=== PATIENT | female | born 1975 | race Caucasian/White ===

== ENCOUNTER 2020-04-22 14:28 | Emergency (ER) | payer MEDICARE, MEDICAID, SELFPAY ==
[2020-04-22 14:41] VITALS: BP 87/50; PULSE 75; RESP 20; TEMP 37.5; O2SAT 98
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
== END 2020-04-22 15:08 | disposition home or self-care (01) ==
PROVIDERS: Emergency Provider Nurse Practitioner Family; PCP Family Medicine
DX: J02.9 Acute pharyngitis, unspecified (principal); G82.20 Paraplegia, unspecified; T14.8XXS Other injury of unspecified body region, sequela
CPT/HCPCS: 87081; 87880; 99203; G0463

== ENCOUNTER 2022-03-28 13:13 | Emergency (ER) | payer MEDICARE, MEDICAID, SELFPAY ==
[2022-03-28 13:22] VITALS: BP 82/58; PULSE 65; RESP 16; TEMP 36.4; O2SAT 98
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
[2022-03-28 13:54] VITALS: BP 82/58; PULSE 65; RESP 16; TEMP 36.4; O2SAT 98
== END 2022-03-28 14:15 | disposition home or self-care (01) ==
PROVIDERS: Emergency Provider Registered Nurse; PCP Family Medicine
DX: J06.9 Acute upper respiratory infection, unspecified (principal); J02.9 Acute pharyngitis, unspecified; Z20.822 Contact with and (suspected) exposure to COVID-19; Z87.891 Personal history of nicotine dependence; G83.89 Other specified paralytic syndromes
CPT/HCPCS: 87426; 99213; C9803; G0463

== ENCOUNTER 2022-10-20 12:32 | Emergency (ER) | payer MEDICARE, MEDICAID, SELFPAY ==
[2022-10-20 12:46] VITALS: BP 108/79; PULSE 77; RESP 20; TEMP 36.5; O2SAT 100
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
== END 2022-10-20 13:44 | disposition home or self-care (01) ==
PROVIDERS: Emergency Provider Nurse Practitioner Family
DX: R30.0 Dysuria (principal); Z87.891 Personal history of nicotine dependence
CPT/HCPCS: 81003; 87077; 87086; 87186; 99213; G0463

== ENCOUNTER 2023-05-12 13:10 | Emergency (ER) | payer MEDICARE, MEDICAID, SELFPAY ==
[2023-05-12 13:24] VITALS: BP 100/57; PULSE 77; RESP 16; TEMP 36.6; O2SAT 100
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
== END 2023-05-12 14:00 | disposition home or self-care (01) ==
PROVIDERS: Emergency Provider Nurse Practitioner; PCP Family Medicine
DX: R30.0 Dysuria (principal); Z87.891 Personal history of nicotine dependence; G83.9 Paralytic syndrome, unspecified
CPT/HCPCS: 81003; 87077; 87086; 87088; 87186; 99213; G0463

== ENCOUNTER 2023-11-15 13:19 | Emergency (ER) | payer MEDICARE, MEDICAID, SELFPAY ==
[2023-11-15 13:26] VITALS: BP 103/67; PULSE 73; RESP 16; TEMP 36.3; O2SAT 98
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
--- NOTE | 2023-11-17 14:46 | PC.NURSE ---
called and requested results of strep cx and was given.
== END 2023-11-15 14:02 | disposition home or self-care (01) ==
PROVIDERS: Emergency Provider Registered Nurse; PCP Family Medicine
DX: J02.9 Acute pharyngitis, unspecified (principal); Z20.818 Contact with and (suspected) exposure to other bacterial communicable diseases; Z87.891 Personal history of nicotine dependence; S14.105S Unspecified injury at C5 level of cervical spinal cord, sequela; X58.XXXS Exposure to other specified factors, sequela
CPT/HCPCS: 87081; 87880; 99213; G0463

== ENCOUNTER 2023-12-25 14:29 | Emergency (ER) | payer MEDICARE, MEDICAID, SELFPAY ==
[2023-12-25 14:38] VITALS: BP 85/59; PULSE 88; RESP 20; TEMP 36.6; O2SAT 98
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
== END 2023-12-25 15:40 | disposition home or self-care (01) ==
PROVIDERS: Emergency Provider Nurse Practitioner Family; PCP Family Medicine
DX: J06.9 Acute upper respiratory infection, unspecified (principal); Z87.891 Personal history of nicotine dependence; Z20.822 Contact with and (suspected) exposure to COVID-19
CPT/HCPCS: 87081; 87426; 87804; 87880; 99213; G0463

== ENCOUNTER 2024-04-14 10:07 | Emergency (ER) | payer MEDICARE, MEDICAID, SELFPAY ==
[2024-04-14 10:14] VITALS: BP 93/54; PULSE 95; RESP 20; TEMP 37.5; O2SAT 97
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
[2024-04-14 10:46] LABS: EDUAAPPEAR Cloudy; EDUABILI Negative; EDUABLOOD Trace; EDUACOLOR1 Yellow; EDUAGLUCOSE Negative; EDUAKETONE Negative; EDUALEUKO 1+; EDUANITRATE Positive; EDUAPROTEIN Negative; EDUAUROBILI 0.2
== END 2024-04-14 10:51 | disposition home or self-care (01) ==
PROVIDERS: Emergency Provider Nurse Practitioner Family; PCP Family Medicine
DX: N39.0 Urinary tract infection, site not specified (principal); Z87.891 Personal history of nicotine dependence; G82.20 Paraplegia, unspecified
CPT/HCPCS: 81003; 87077; 87086; 87088; 87186; 99213; G0463

== ENCOUNTER 2024-11-26 12:41 | Emergency (ER) | payer MEDICARE, MEDICAID, SELFPAY ==
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
[2024-11-26 13:11] LABS: EDUAAPPEAR Cloudy; EDUABILI Negative (Negative); EDUABLOOD Negative (Negative); EDUACOLOR1 Light/Pale; EDUAGLUCOSE Negative (Negative); EDUAKETONE Negative (Negative); EDUALEUKO 1+ (Negative); EDUANITRATE Negative (Negative); EDUAPROTEIN Negative (Negative); EDUAUROBILI 0.2
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
--- OUTSIDE RECORDS SUMMARY | 2024-11-26 13:44 | XMS_ITS ---
Care Plan - [facility] Created on: November 26, 2024 SEVEN SINGER : 1975 Sex: Female Author Organization [facility] Address [address] [place] [address] Phone Care Team Providers Care It Senior Analyst Name Role Phone Unavailable Unavailable Unavailable
--- OUTSIDE RECORDS SUMMARY | 2024-11-26 13:45 | XMS_ITS | Data Portability ---
Author Organization [facility] [place] Address [address] [facility] [place] [address] Care Team Providers Care Supply Chain Assistant Name Role Phone REYESCHESTERAN Primary Care Provider [phone] Assessment Encounter Date Assessment Date Assessment LastModified by Organization Details LastModified Time 02/22/2022 02/22/2022 Pt will stop methenamine for several days to see if the hives resolve. Pt is to let us know later this week or earlier next week how she is doing. [email or web address] Not available 02/23/2022 14:25:31 06/12/2024 06/12/2024 Pt is stable, accompanied by sister who works for her as caregiver. [email or web address] Not available 06/15/2024 08:46:07 Plan of Treatment Reminders Order Date Submit Date Provider Last Modified By Organization Details Last Modified Time Details Appointments None recorded. Lab HbA1c (hemoglob in A1c), blood 2023 [facility], [address] [place], [address], 4 09:14:30 lipid panel, serum 2023 024 [facility], [address] [place], [address], 4 09:14:24 TSH, ultra-sen sitive, serum 2023 024 [facility], [address] [place], [address], 4 09:14:31 CBC w/ auto diff 2023 024 JOSIANE Santino [facility], [address] [facility] [place], [address], 4 09:14:33 CMP, serum or plasma 2023 024 JOSIANE Santino [facility], [address] [facility] [place], [address], 4 09:14:25 iron + total iron-bind ing capacity (TIBC), serum 2023 024 COMFORT Santino [facility], [address] [facility] [place], [address], 4 09:14:29 vaginal pathogens panel, ALIE+probe , vaginal fluid 2023 024 [facility], [address] [facility], [place], [address], 4 16:08:09 pap, IG + HPV, cervical 2023 024 J[facility]IANE [facility], [address] [facility], [facility], [place], [address], 4 16:13:45 O&P (ova & parasites ), stool 2023 024 JOSIANE [facility], [address] [facility], [facility], [place], [address], 4 06:18:02 gastroint estinal pathogens panel, culture, stool 2023 024 J[facility]IANE [facility], [address] [facility], [facility], [place], [address], 4 13:10:46 HbA1c (hemoglob in A1c), blood 2021 022 JOSIANE In-Office Order, Internal Use Only DO Not Attach Compendium DO Not Attach Compendium, Do Not Delete/merge, [id number] 17:01:23 CMP, serum or plasma 2021 [facility], [address] [facility], [facility], [place], [address], 09:13:24 lipid panel, serum 2021 [facility], [address] [facility], [facility], [place], [address], 09:13:25 CBC w/ auto diff 2021 [facility], [address] [facility], [facility], [place], [address], 09:13:22 TSH, ultra-sen sitive, serum 2021 [facility], [address] [facility], [facility], [place], [address], 09:13:27 vitamin D, 25-hydrox y, total, serum 2021 [facility], [address] [facility], [facility], [place], [address], 09:13:26 Referral gynecolog ist referral 2023 024 [facility], [address] [place], [address], 14:50:00 Procedures None recorded. Surgeries None recorded. Imaging MAMMO, screening , digital, bilateral - Patient needs to be scheduled at [facility] due to needing a sitting mammogram . Is keith coy, and in jon trevino Thank you! 2023 024 [facility] (Central Scheduling), [address] , [place], [address], 5 13:26:33 Medication Orders Diflucan 150 mg tablet 2023 024 [id number], [address], [place], [place], [id number], 4 15:58:38 Bactrim DS 800 mg-160 mg tablet 2022 023 [email or web address][id number], [address], [place], [place], [id number], 4 15:53:34 ferrous sulfate 325 mg (65 mg iron) tablet 2022 023 [facility] #[id number], [address], [place], [place], [id number], 4 15:58:33 cranberry extract 200 mg capsule 2021 022 [email or web address] #[id number], [address], [place], [place], [id number], 3 12:37:38 Patient TargetsNo targets recorded. Patient Instructions Encounter Date Encounter Id Patient Instructions Last Modified By Organization Details Last Modified Time 02/22/2022 [id number] chronic hives: care instructions [email or web address] Not available 02/22/2022 15:04:52 05/23/2023 [id number] anemia: care instructions Not available 05/23/2023 13:06:03 12/20/2023 [id number] Plan of care has been discussed with patient including expected therapeutic benefits and potential side effects of prescribed medication and treatments. Patient verbalizes understanding and is in agreement with the plan of care. Patient was instructed to keep all scheduled appointments and contact the clinic for any additional problems. 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 Referring Physician: Adela Crowder, Pillowcase Sewer, Encounter Date: 05/16/2024 Results Created Date Observation Date Name Description Value Unit Range Abnormal Flag Note LastModifiedBy Organization Detail LastModifiedTime 02/23/20 22 02/23/2022 CBC WITH DIFFE RENTI AL/PL ATELE T WBC 7.1 x10e3 /uL 3.4-10 .8 Not Available [facility] ([facility]) [address] [place], [address], 02/23/2022 09:13:22 02/23/2002/23/2022 CBC WITH DIFFE RENTI AL/PL ATELE T RBC 4.08 x10e6 /uL 3.77-5 .28 Not Available [facility] ([facility]) [address] [place], [address], 02/23/2022 09:13:22 02/23/20 22 02/23/2022 CBC WITH DIFFE RENTI AL/PL ATELE T hemoglobin 11.0 g/dL 11.1-1 5.9 below low normal Not Available [facility] ([facility]) [address] [place], [address], 02/23/2022 09:13:22 02/23/20 22 02/23/2022 CBC WITH DIFFE RENTI AL/PL ATELE T hematocrit 34.2 % 34.0-4 6.6 Not Available [facility] ([facility]) [address] [place], [address], 02/23/2022 09:13:22 07/05/20 22 02/23/2022 CBC WITH DIFFE RENTI AL/PL ATELE T MCV 84 fL 79-97 Not Available [facility] ([facility]) [address] [place], [address], 02/23/2022 09:13:22 02/23/20 22 02/23/2022 CBC WITH DIFFE RENTI AL/PL ATELE T MCH 27.0 pg 26.6-3 3.0 Not Available [facility] ([facility]) [address] [facility], [place], [address], 02/23/2022 09:13:22 02/23/20 22 02/23/2022 CBC WITH DIFFE RENTI AL/PL ATELE T MCHC 32.2 g/dL 31.5-3 5.7 Not Available [facility] ([facility]) [address] [facility], [place], [address], 02/23/2022 09:13:22 02/23/20 22 02/23/2022 CBC WITH DIFFE RENTI AL/PL ATELE T RDW 14.8 % 11.7-1 5.4 Not Available [facility] ([facility]) [address] [place], [address], 02/23/2022 09:13:22 02/23/20 22 02/23/2022 CBC WITH DIFFE RENTI AL/PL ATELE T platelets 303 x10e3 /uL 150-45 0 Not Available [facility] ([facility]) [address] [facility], [place], [address], 02/23/2022 09:13:22 02/23/20 22 02/23/2022 CBC WITH DIFFE RENTI AL/PL ATELE T neutrophils 66 % not estab. Not Available [facility] ([facility]) [address] [place], [address], 02/23/2022 09:13:22 02/23/20 22 02/23/2022 CBC WITH DIFFE RENTI AL/PL ATELE T lymphs 21 % not estab. Not Available [facility] ([facility]) [address] [facility], [place], [address], 02/23/2022 09:13:22 02/23/20 22 02/23/2022 CBC WITH DIFFE RENTI AL/PL ATELE T monocytes 9 % not estab. Not Available [facility] ([facility]) [address] [place], [address], 02/23/2022 09:13:22 02/23/20 22 02/23/2022 CBC WITH DIFFE RENTI AL/PL ATELE T eos 3 % not estab. Not Available [facility] ([facility]) [address] [place], [address], 02/23/2022 09:13:22 02/23/20 22 02/23/2022 CBC WITH DIFFE RENTI AL/PL ATELE T basos 1 % not estab. Not Available [facility] ([facility]) [address] [facility], [place], [address], 02/23/2022 09:13:22 02/23/20 22 02/23/2022 CBC WITH DIFFE RENTI AL/PL ATELE T immature cells EMERGENCY TECHNICIAN Not Available [facility] ([facility]) [address] [place], [address], 02/23/2022 09:13:22 02/23/20 22 02/23/2022 CBC WITH DIFFE RENTI AL/PL ATELE T neutrophils (absolute) 4.7 x10e3 /uL 1.4-7. 0 Not Available [facility] ([facility]) [address] [place], [address], 02/23/2022 09:13:22 02/23/20 22 02/23/2022 CBC WITH DIFFE RENTI AL/PL ATELE T lymphs (absolute) 1.5 x10e3 /uL 0.7-3. 1 Not Available [facility] ([facility]) [address] [place], [address], 02/23/2022 09:13:22 02/23/20 22 02/23/2022 CBC WITH DIFFE RENTI AL/PL ATELE T monocytes(ab solute) 0.6 x10e3 /uL 0.1-0. 9 Not Available [facility] ([facility]) [address] [facility], [place], [address], 02/23/2022 09:13:22 02/23/20 22 02/23/2022 CBC WITH DIFFE RENTI AL/PL ATELE T eos (absolute) 0.2 x10e3 /uL 0.0-0. 4 Not Available [facility] ([facility]) [address] [facility], [place], [address], 02/23/2022 09:13:22 02/23/20 22 02/23/2022 CBC WITH DIFFE RENTI AL/PL ATELE T baso (absolute) 0.1 x10e3 /uL 0.0-0. 2 Not Available [facility] ([facility]) [address] [facility], [place], [address], 02/23/2022 09:13:22 02/23/20 22 02/23/2022 CBC WITH DIFFE RENTI AL/PL ATELE T immature granulocytes 0 % not estab. Not Available [facility] ([facility]) [address] [facility], [place], [address], 02/23/2022 09:13:22 02/23/20 22 02/23/2022 CBC WITH DIFFE RENTI AL/PL ATELE T immature grans (abs) 0.0 x10e3 /uL 0.0-0. 1 Not Available [facility] ([facility]) [address] [place], [address], 02/23/2022 09:13:22 02/23/20 22 02/23/2022 CBC WITH DIFFE RENTI AL/PL ATELE T NRBC EMERGENCY TECHNICIAN Not Available [facility] ([facility]) [address], [place], [address], 02/23/2022 09:13:22 02/23/20 22 02/23/2022 CBC WITH DIFFE TAHIRA AL/PL ÁLVARO T hematology comments: EMERGENCY TECHNICIAN Not Available [facility] ([facility]) [address], [place], [address], 02/23/2022 09:13:22 02/23/20 22 02/23/2022 COMP. METAB OLIC PANEL (14) glucose 79 mg/dL 65-99 Not Available [facility] ([facility]) [address] [place], [address], 02/23/2022 09:13:23 02/23/20 22 02/23/2022 COMP. METAB OLIC PANEL (14) BUN 8 mg/dL 6-24 Not Available [facility] ([facility]) [address] [place], [address], 02/23/2022 09:13:23 02/23/20 22 02/23/2022 COMP. METAB OLIC PANEL (14) creatinine 0.34 mg/dL 0.57-1 .00 below low normal Not Available [facility] ([facility]) [address] [place], [address], 02/23/2022 09:13:23 02/23/20 22 02/23/2022 COMP. METAB OLIC PANEL (14) eGFR 130 mL/mi n/1.7 3 >59 Not Available [facility] ([facility]) [address] [facility] [place], [address], 02/23/2022 09:13:23 02/23/20 22 02/23/2022 COMP. METAB OLIC PANEL (14) BUN/creatini ne ratio 24 9-23 above high normal Not Available [facility] ([facility]) [address] [facility] [place], [address], 02/23/2022 09:13:23 02/23/20 22 02/23/2022 COMP. METAB OLIC PANEL (14) sodium 140 mmol/ L 134-14 4 Not Available [facility] ([facility]) [address] [place], [address], 02/23/2022 09:13:23 02/23/20 22 02/23/2022 COMP. METAB OLIC PANEL (14) potassium 4.3 mmol/ L 3.5-5. 2 Not Available [facility] ([facility]) [address] [place], [address], 02/23/2022 09:13:23 02/23/20 22 02/23/2022 COMP. METAB OLIC PANEL (14) chloride 107 mmol/ L 96-106 above high normal Not Available [facility] ([facility]) [address] [place], [address], 02/23/2022 09:13:23 02/23/20 22 02/23/2022 COMP. METAB OLIC PANEL (14) carbon dioxide, total 21 mmol/ L 20-29 Not Available [facility] ([facility]) [address] [place], [address], 02/23/2022 09:13:23 02/23/20 22 02/23/2022 COMP. METAB OLIC PANEL (14) calcium 9.7 mg/dL 8.7-10 .2 Not Available [facility] ([facility]) [address] [place], [address], 02/23/2022 09:13:23 02/23/20 22 02/23/2022 COMP. METAB OLIC PANEL (14) protein, total 6.6 g/dL 6.0-8. 5 Not Available [facility] ([facility]) [address] [place], [address], 02/23/2022 09:13:23 02/23/20 22 02/23/2022 COMP. METAB OLIC PANEL (14) albumin 4.0 g/dL 3.8-4. 8 Not Available [facility] ([facility]) [address] [place], [address], 02/23/2022 09:13:23 02/23/20 22 02/23/2022 COMP. METAB OLIC PANEL (14) globulin, total 2.6 g/dL 1.5-4. 5 Not Available [facility] ([facility]) [address] [place], [address], 02/23/2022 09:13:23 02/23/20 22 02/23/2022 COMP. METAB OLIC PANEL (14) A/G ratio 1.5 1.2-2. 2 Not Available [facility] ([facility]) [address] [place], [address], 02/23/2022 09:13:23 02/23/20 22 02/23/2022 COMP. METAB OLIC PANEL (14) bilirubin, total 0.4 mg/dL 0.0-1. 2 Not Available [facility] ([facility]) [address] [place], [address], 02/23/2022 09:13:23 02/23/20 22 02/23/2022 COMP. METAB OLIC PANEL (14) alkaline phosphatase 72 IU/L 44-121 Not Available [facility] ([facility]) [address] [place], [address], 02/23/2022 09:13:23 02/23/20 22 02/23/2022 COMP. METAB OLIC PANEL (14) AST (SGOT) 14 IU/L 0-40 Not Available [facility] ([facility]) [address] [place], [address], 02/23/2022 09:13:23 02/23/20 22 02/23/2022 COMP. METAB OLIC PANEL (14) ALT (SGPT) 13 IU/L 0-32 Not Available [facility] ([facility]) [address] [place], [address], 02/23/2022 09:13:23 02/23/20 22 02/23/2022 LIPID PANEL cholesterol, total 164 mg/dL 100-19 9 Not Available [facility] ([facility]) [address] [place], [address], 02/23/2022 09:13:25 02/23/20 22 02/23/2022 LIPID PANEL triglyceride s 62 mg/dL 0-149 Not Available [facility] ([facility]) [address] [place], [address], 02/23/2022 09:13:25 02/23/20 22 02/23/2022 LIPID PANEL HDL cholesterol 56 mg/dL >39 Not Available [facility] ([facility]) [address] [place], [address], 02/23/2022 09:13:25 02/23/20 22 02/23/2022 LIPID PANEL VLDL cholesterol jaydon 12 mg/dL 5-40 Not Available [facility] ([facility]) [address] [place], [address], 02/23/2022 09:13:25 02/23/20 22 02/23/2022 LIPID PANEL LDL chol calc ([facility]) 96 mg/dL 0-99 Not Available [facility] ([facility]) [address] [place], [address], 02/23/2022 09:13:25 02/23/20 22 02/23/2022 LIPID PANEL comment: EMERGENCY TECHNICIAN Not Available [facility] ([facility]) [address] [place], [address], 02/23/2022 09:13:25 02/23/20 22 02/23/2022 VITAM IN D, 25-HY DROXY vitamin D, 25-hydroxy 46.9 NG/mL 30.0-1 00.0 Vitam in D defic iency has been defin ed by the Insti tute of Medic ine and an Endoc rine Socie ty pract ice guide line as a level of serum 25-OH vitam in D less than 20 ng/mL (1,2) . The Endoc rine Socie ty went on to furth er defin e vitam in D insuf ficie ncy as a level betwe en 21 and 29 ng/mL (2). 1. IOM (Inst itute of Medic ine). 2010. Dieta ry refer ence intak es for calci um and D. Dillon garg [place]: [facility] . 2. Annel cullen [place], Lata méndez [place], Martin off-F maurizioar i MATTHEWS, et al. Evalu ation , treat ment, and preve ntion of vitam in D defic iency : an Endoc rine Socie ty clini jaydon pract ice guide line. JCEM. 2010; 96(7) :1911 -30. Not Available [facility] ([facility]) [address] [facility], [place], [address], 02/23/2022 09:13:26 02/23/20 22 02/23/2022 TSH RFX ON ABNOR MAL TO FREE T4 TSH 2.290 uIU/m L 0.450- 4.500 Not Available [facility] ([facility]) [address] [facility], [place], [address], 02/23/2022 09:13:27 02/23/20 22 02/22/2022 HbA1c (hemo globi n A1c), blood HbA1c error Not Available In-Office Order Internal Use Only DO Not Attach Compendium DO Not Attach Compendium, Do Not Delete/merge, [id number] 02/22/2022 14:20:52 12/22/19 24 12/24/2023 STOOL CULTU RE salmonella/s higella screen Final report Not Available [facility] ([facility]) [address] [facility], [place], [address], 12/26/2023 13:10:45 12/22/19 24 12/24/2023 STOOL CULTU RE E coli shiga toxin EIA Negati ve negati ve Not Available [facility] ([facility]) [address] [place], [address], 12/26/2023 13:10:45 12/22/19 24 12/24/2023 STOOL CULTU RE result 1 Commen t No Salmo ezequiel or Shige lla recov ered. Not Available [facility] ([facility]) [address] [place], [address], 12/26/2023 13:10:45 12/22/19 24 12/26/2023 STOOL CULTU RE campylobacte r culture Final report Not Available [facility] ([facility]) [address] [place], [address], 12/26/2023 13:10:45 12/22/19 24 12/26/2023 STOOL CULTU RE result 1 Commen t No Campy lobac ter speci es isola venkata. Not Available [facility] ([facility]) [address] [place], [address], 12/26/2023 13:10:45 12/22/19 24 12/26/2023 OVA + GLORIA ITE EXAM ova + parasite exam Final report These resul ts were obtai sally using wet prepa ratio n(s) and trich sebastián stain ed smear . This test does not inclu de testi ng for Crypt ospor idium parvu m, Cyclo spora , or Micro spori mo. Not Available [facility] ([facility]) [address] [place], [address], 12/27/2023 06:18:02 12/22/19 24 12/26/2023 OVA + GLORIA ITE EXAM result 1 Commen t No ova, cysts , or gloria ites seen. One negat tamra speci men does not rule out the possi bilit y of a gloria itic infec tion. Not Available [facility] ([facility]) [address] [facility], [place], [address], 12/27/2023 06:18:02 05/16/20 24 05/18/2024 NUA B VAGIN ITIS PLUS (VG+) atopobium vaginae LOW - 0 score Not Available [facility] ([facility]) [address] [facility], [place], [address], 2024 16:08:09 05/16/20 24 05/18/2024 NUSWA B VAGIN ITIS PLUS (VG+) bvab 2 LOW - 0 score Not Available [facility] ([facility]) [address] [facility], [place], [address], 2024 16:08:09 05/16/20 24 05/18/2024 NUA B VAGIN ITIS PLUS (VG+) megasphaera 1 LOW - 0 score Calcu late total score by shawn patel the 3 indiv idual bacte rial vagin osis (BV) marke r score s toget her. Total score is inter prete d as follo ws: Total score 0-1: Indic ates the absen ce of BV. Total score 2: Indet ermin ate for BV. Addit ional clini jaydon data shoul d be evalu ated to estab ginny a diagn osis. Total score 3-6: Indic ates the prese nce of BV. Not Available [facility] ([facility]) [address] [facility], [place], [address], 2024 16:08:09 05/16/20 24 05/18/2024 NUSWA B VAGIN ITIS PLUS (VG+) trich vag by ALIE NEGATI VE negati ve Not Available [facility] ([facility]) [address] [facility], [place], [address], 2024 16:08:09 05/16/20 24 05/18/2024 NUSWA B VAGIN ITIS PLUS (VG+) chlamydia trachomatis, ALIE NEGATI VE negati ve Not Available [facility] ([facility]) [address] [place], [address], 2024 16:08:09 05/16/20 24 05/18/2024 NUSWA B VAGIN ITIS PLUS (VG+) neisseria gonorrhoeae, ALIE NEGATI VE negati ve Not Available [facility] ([facility]) [address] [place], [address], 2024 16:08:09 05/16/20 24 2024 NUSWA B VAGIN ITIS PLUS (VG+) deann albicans, ALIE NEGATI VE negati ve Not Available [facility] ([facility]) [address] [place], [address], 2024 16:08:09 05/16/20 24 2024 NUA B VAGIN ITIS PLUS (VG+) deann glabrata, ALIE POSITI VE negati ve abnormal Publi shed data demon strat e that up to 65% of Basia da glabr homer ident ified in cases of vagin al basia diasi s have decre ased susce ptibi lity to fluco nazol e. Not Available [facility] ([facility]) [address] [facility], [place], [address], 2024 16:08:09 05/16/20 24 05/18/2024 IGP, APTIM A HPV HPV aptima NEGATI VE negati ve This nucle ic acid ampli ficat ion test detec ts fourt een high- risk HPV types (16,1 8,31, 33,35 ,39,4 5,51, 52,56 ,58,5 9,66, 68) witho ut diffe renti ation . Not Available [facility] ([facility]) [address] [facility], [place], [address], 05/22/2024 16:13:45 05/16/20 24 05/22/2024 IGP, APTIM A HPV diagnosis: THANG T NEGAT TAMRA FOR INTRA EPITH ELIAL LESIO N OR LAN WADE . CELLU BAO SCHMIDT ES ASSOC IATED WITH INFLA MMATI ON ARE PRESE NT. Not Available [facility] ([facility]) [address] [place], [address], 05/22/2024 16:13:45 05/16/20 24 05/22/2024 IGP, APTIM A HPV specimen adequacy: THANG T Satis facto ry for evalu ation . Endoc ervic al and/o r squam ous metap lasti c cells (endo cervi jaydon compo nent) are prese nt. Not Available [facility] ([facility]) [address] [place], [address], 05/22/2024 16:13:45 05/16/20 24 05/22/2024 IGP, APTIM A HPV clinician provided ICD10: THANG Cool N89.8 Z01.4 19 Not Available [facility] ([facility]) [address] [place], [address], 05/22/2024 16:13:45 05/16/20 24 05/22/2024 IGP, APTIM A HPV performed by: THANG Dodd eh, Cytot echlala leon t (ASCP ) Not Available [facility] ([facility]) [address] [place], [address], 05/22/2024 16:13:45 05/16/20 24 05/22/2024 IGP, APTIM A HPV . . Not Available [facility] ([facility]) [address] [place], [address], 05/22/2024 16:13:45 05/16/20 24 05/22/2024 IGP, APTIM A HPV note: THANG T The Pap smear is a scree sheryl test judith zavala to aid in the detec tion of karen ligna nt and malig nant condi tions of the uteri ne cervi x. It is not a diagn ostic proce dure and shoul d not be used as the sole means of detec ting cervi jaydon cance r. Both false -posi tive and false -nega tive repor ts do occur . Not Available [facility] ([facility]) [address] [place], [address], 05/22/2024 16:13:45 05/16/2005/22/2024 IGP, APTIM A HPV test methodology: COMMEN T This liqui d based ThinP rep(R ) pap test was scree sally with the use of an image guide alena grant Not Available [facility] ([facility]) [address] [place], [address], 05/22/2024 16:13:45 06/12/2006/13/2024 LIPID PANEL cholesterol, total 181 mg/dL 100-19 9 Not Available [facility] ([facility]) [address] [place], [address], 06/13/2024 09:14:24 06/12/2006/13/2024 LIPID PANEL triglyceride s 80 mg/dL 0-149 Not Available [facility] ([facility]) [address] [place], [address], 06/13/2024 09:14:24 06/12/2006/13/2024 LIPID PANEL HDL cholesterol 60 mg/dL >39 Not Available [facility] ([facility]) [address] [place], [address], 06/13/2024 09:14:24 06/12/2006/13/2024 LIPID PANEL VLDL cholesterol jaydon 15 mg/dL 5-40 Not Available [facility] ([facility]) [address] [place], [address], 06/13/2024 09:14:24 06/12/2006/13/2024 LIPID PANEL LDL chol calc ([facility]) 106 mg/dL 0-99 above high normal Not Available [facility] ([facility]) [address] [place], [address], 06/13/2024 09:14:24 06/12/20 24 06/13/2024 COMP. METAB OLIC PANEL (14) glucose 84 mg/dL 70-99 Not Available [facility] ([facility]) [address] [place], [address], 06/13/2024 09:14:25 06/12/2006/13/2024 COMP. METAB OLIC PANEL (14) BUN 7 mg/dL 6-24 Not Available [facility] ([facility]) [address] [place], [address], 06/13/2024 09:14:25 06/12/2006/13/2024 COMP. METAB OLIC PANEL (14) creatinine 0.31 mg/dL 0.57-1 .00 below low normal Not Available [facility] ([facility]) [address] [place], [address], 06/13/2024 09:14:25 06/12/2006/13/2024 COMP. METAB OLIC PANEL (14) eGFR 131 mL/mi n/1.7 3 >59 Not Available [facility] ([facility]) [address] [place], [address], 06/13/2024 09:14:25 06/12/2006/13/2024 COMP. METAB OLIC PANEL (14) BUN/creatini ne ratio 05-13 Not Available [facility] ([facility]) [address] [place], [address], 06/13/2024 09:14:25 06/12/2006/13/2024 COMP. METAB OLIC PANEL (14) sodium 137 mmol/ L 134-14 4 Not Available [facility] ([facility]) [address] [place], [address], 06/13/2024 09:14:25 06/12/2006/13/2024 COMP. METAB OLIC PANEL (14) potassium 4.2 mmol/ L 3.5-5. 2 Not Available [facility] ([facility]) [address] [place], [address], 06/13/2024 09:14:25 06/12/2006/13/2024 COMP. METAB OLIC PANEL (14) chloride 105 mmol/ L 96-106 Not Available [facility] ([facility]) [address] [facility] [place], [address], 06/13/2024 09:14:25 06/12/20 24 06/13/2024 COMP. METAB OLIC PANEL (14) carbon dioxide, total 20 mmol/ L 20-29 Not Available [facility] ([facility]) [address] [facility] [place], [address], 06/13/2024 09:14:25 06/12/2006/13/2024 COMP. METAB OLIC PANEL (14) calcium 9.8 mg/dL 8.7-10 .2 Not Available [facility] ([facility]) [address] [facility] [place], [address], 06/13/2024 09:14:25 06/12/2006/13/2024 COMP. METAB OLIC PANEL (14) protein, total 7.1 g/dL 6.0-8. 5 Not Available [facility] ([facility]) [address] [facility] [place], [address], 06/13/2024 09:14:25 06/12/2006/13/2024 COMP. METAB OLIC PANEL (14) albumin 4.1 g/dL 3.9-4. 9 Not Available [facility] ([facility]) [address] [facility] [place], [address], 06/13/2024 09:14:25 06/12/2006/13/2024 COMP. METAB OLIC PANEL (14) globulin, total 3.0 g/dL 1.5-4. 5 Not Available [facility] ([facility]) [address] [place], [address], 06/13/2024 09:14:25 06/12/2006/13/2024 COMP. METAB OLIC PANEL (14) bilirubin, total 0.5 mg/dL 0.0-1. 2 Not Available [facility] ([facility]) [address] [place], [address], 06/13/2024 09:14:25 06/12/2006/13/2024 COMP. METAB OLIC PANEL (14) alkaline phosphatase 87 IU/L 44-121 Not Available [facility] ([facility]) [address] [place], [address], 06/13/2024 09:14:25 06/12/2006/13/2024 COMP. METAB OLIC PANEL (14) AST (SGOT) 16 IU/L 0-40 Not Available [facility] ([facility]) [address] [place], [address], 06/13/2024 09:14:25 06/12/2006/13/2024 COMP. METAB OLIC PANEL (14) ALT (SGPT) 15 IU/L 0-32 Not Available [facility] ([facility]) [address] [place], [address], 06/13/2024 09:14:25 06/12/2006/12/2024 KIMBERLI BRUCE V CMP14 DEFAU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
--- OUTSIDE RECORDS SUMMARY | 2024-11-26 13:45 | XMS_ITS | Clinical Summary ---
Author Organization [facility] Address [address] [place] [address] Phone Care Team Providers Care Log Raft Worker Name Role Phone Zeferino Arteaga MD Primary Care Provider Allergies Active Allergy Reactions Criticality Noted Date Comments Latex Shortness of Breath 03/23/2018 Vancomycin Other (see Comments) 03/23/2018 [employer] Medications baclofen (LIORESAL) 20 MG Tablet Take 20 mg by mouth 2 times daily. Active baclofen (LIORESAL) 20 MG Tablet Take 30 mg by mouth nightly. Active Mirabegron (MYRBETRIQ PO) Take by mouth daily. Active diazePAM (VALIUM) 5 MG Tablet Take 5 mg by mouth nightly. Active oxybutynin (DITROPAN) 5 MG Tablet Take 5 mg by mouth 3 times daily. Active bisacodyl 10 MG Suppository 10 mg by Rectal route as needed. Active Multiple Vitamins-Mineral s (MULTIVITAL PO) Take 1 Tab by mouth daily. Active Oyster Shell 500 MG Tablet Take by mouth 2 times daily. Active senna (SENOKOT) 8.6 MG Tablet Take 2 Tabs by mouth Daily as needed for Constipatio n. Active methenamine (HIPREX) 1 GM Tablet Take 1 g by mouth daily. Active Active Problems Problem Noted Date Diagnosed Date Sepsis 03/24/2018 UTI (urinary tract infection) 03/24/2018 Paraplegia 03/24/2018 Immunizations Immunization Administration Dates Next Due TDAP Vaccine 03/10/2022 Family History Medical History Relation Name Comments Stroke Father Cancer Maternal Grandfather Cancer Paternal Grandfather Relation Name Status Comments Father Maternal Grandfather Paternal Grandfather Social History Tobacco Use Types Packs/Day Years Used Date Smoking Tobacco: Former Cigarettes 1 20 Smokeless Tobacco: Never Alcohol Use Standard Drinks/Week Comments Never 0 (1 standard drink = 0.6 oz pur e alcohol) OCCASIONALLY AUDIT-C Answer Date Recorded Q1: How often do you have a drink containing alc ohol? Never 08/28/2020 Average Number of Drinks Not on file 021 Frequency of Binge Drinking Not on file 03/2021 Comments No Sex and Gender Information Value Date Recorded Sex Assigned at Not on file Legal Sex Female 7:05 PM CDT Gender Identity Not on file Sexual Orientation Not on file Last Filed Vital Signs Vital Sign Reading Time Taken Comments Blood Pressure 100/42 03/10/2022 11:58 PM CDT Pulse 67 03/10/2022 11:58 PM CDT Temperature 35.7 C (96.2 F) 03/10/2022 9:22 PM CDT Respiratory Rate 16 03/10/2022 11:58 PM CDT Oxygen Saturation 97% 03/10/2022 11:58 PM CDT Inhaled Oxygen Concentration - - Weight 52.2 kg (115 lb) 03/10/2022 9:22 PM CDT Height 165.1 cm (5' 5 ) 03/10/2022 9:22 PM CDT Body Mass Index 19.14 03/10/2022 9:22 PM CDT Plan of Treatment Health Maintenance Due Date Last Done Comments Hepatitis C Virus (HCV) Screening 1977 Hepatitis B Immunization (1 of 3 - 19+ 3-dose series) 1996 Colonoscopy 2022 Colorectal Cancer Screening 2022 Influenza Immunization (#1) 04/21/202408/22, 06/28/2016 SARS-COV-2 Immunization ( season) 2024 03/09/2021, 02/09/2021 Respiratory Syncytial Virus (RSV) Immunization (Adult) (1 - 1-dose 75+ series) 2052 DTaP/Tdap/Td Immunization Discontinued 03/10/2022 Meningococcal Immunization (ACWY) Aged Out No longer eligible based on patient's age to complete this topic Pneumococcal Immunization Combined Aged Out No longer eligible based on patient's age to complete this topic Rotavirus Immunization Aged Out No lo nger eligible based on patient's age to complete this topic Insurance MEDICARE [place]ICAID [place] Advance Directives * Full Code (Latest Code Status on File) Date Activated Date Inactivated Comments 03/24/2018 3:13 AM 03/25/2018 3:08 PM CPR-Full Treat ment: FULL ARREST: Attempt Resuscitation/CPR wit intubation and mechanical ventilation. PRE-ARREST: Use entire range of life support measures to stabilize the patient. Care Teams Log Raft Worker Relationship Specialty Start Date End Date Zeferino Arteaga MD 4 [facility] [address] [place] [address] PCP - General Family Medicine 11/06/17
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
--- OUTSIDE RECORDS SUMMARY | 2024-11-26 13:46 | XMS_ITS | Referral Summary ---
Author Organization [facility] Address [address] [place] [address] Care Team Providers Care Transit Mixer Operator Name Role Phone Zeferino Arteaga MD Primary Care Provider Encounters Date Type Department Care Team Description 11/05/2024 11:52 AM CDT - 11/05/2024 11:59 PM CDT Hospital Encounter [facility] Imaging and Radiology [address] [place] [address] [id number] Encounter for screening mammogram for malignant neoplasm of breast Discharge Disposition: Discharge to home or self care from Last 3 Months Allergies Active Allergy Reactions Criticality Noted Date Comments Cefepime Nausea And Vomiting 06/27/2016 Latex Anaphylaxis,Shortness of breath High Vancomycin Flushing (skin),Naus ea And Vomiting,Rash Medium 02/17/2016 Medications senna (SENOKOT) 8.6 mg tablet Take 2 tablets by mouth daily as needed for constipation Active loratadine (CLARITIN) 10 mg tablet Take 1 tablet (10 mg total) by mouth daily 12/03/19 21 Active Oysco 500/D 500 mg-5 mcg (200 unit) per tablet TAKE 1 TABLET BY MOUTH TWICE DAILY 60 tablet 10 11/18/19 23 Active methenamine (HIPREX) 1 gram tablet TAKE 1 TABLET(1 GRAM) BY MOUTH DAILY AFTER DINNER 90 tablet 3 01/19/20 24 Active bisacodyL (DULCOLAX) 10 mg suppository Insert 1 suppository (10 mg total) into the rectum daily 90 suppository 3 03/25/20 24 025 Active oxyBUTYnin (DITROPAN) 5 mg tabletIndicatio ns:Tetraplegia (HCC),Quadriple yobany (HCC),Muscle spasticity TAKE 1 TABLET(5 MG) BY MOUTH THREE TIMES DAILY 270 tablet 3 07/16/20 24 Active baclofen (LIORESAL) 10 mg tablet TAKE 1 TABLET(10 MG) BY MOUTH DAILY 30 tablet 11 09/12/19 25 Active diazePAM (VALIUM) 5 mg tablet TAKE 1 TABLET(5 MG) BY MOUTH EVERY NIGHT NEEDED FOR MUSCLE SPASMS 30 tablet 5 10/07/19 25 Active mirabegron ER (Myrbetriq) 50 mg tablet extended release 24 hrIndications:N eurogenic bladder Take 1 tablet (50 mg total) by mouth daily 90 tablet 3 10/24/19 25 Active baclofen (LIORESAL) 20 mg tablet TAKE 1 TABLET (20MG) BY MOUTH THREE TIMES DAILY 90 tablet 11 10/25/19 25 Active Active Problems Problem Noted Date Diagnosed Date Sleeping difficulty 12/07/2021 Muscle spasticity 03/25/2019 Tetraplegia 09/24/2018 Neurogenic bowel 09/24/2018 Disuse osteoporosis 09/24/2018 Osteoporosis of disuse 09/24/2018 Sepsis 04/15/2018 Overview (04/15/2018): Added automatically from request for surgery [id number] Bladder stones 03/20/2018 Overview (03/20/2018): Added automatically from request for surgery [id number] Pneumonia due to infectious organism 08/24/2017 Assessment & Plan (08/24/2017 8:48 PM WEDDING COORDINATOR): Patient allergoic To vanc Cephalosporins, Will Continue on Aztreonam And levaquin Flu Was Negative Bcx Pending Will Get Sputum Cx And Urinary antigens Mucinex Duonebs Chest PT Albuterol As needed Neurogenic bladder 08/24/2017 Assessment & Plan (08/24/2017 8:41 PM WEDDING COORDINATOR): Patient Self cathing At Home Currently Has Melendez Catheter in place - Will Continue With that Smoker 08/24/2017 Assessment & Plan (08/24/2017 8:41 PM WEDDING COORDINATOR): Discussed And ancouraged To Stop Smoking Will Start On Nicotine Replacement patch Calculus of urinary bladder 11/22/2016 Cyst of breast 07/17/2015 Abnormal findings on diagnostic imaging of breas t 07/17/2015 Osteomyelitis of pelvic region 07/06/2015 Decubitus ulcer of buttock 07/06/2015 Pressure ulcer, stage 2 04/08/2015 Urolithiasis 04/15/2014 Unspecified urinary incontinence 02/11/2014 Cervicalgia 04/11/2013 Decubitus ulcer of coccygeal region 04/11/2013 Spasm 04/11/2013 Urinary tract infection 04/11/2013 Quadriplegia 12/07/2011 Osteoporosis 06/10/2011 Contracture of joint of hand 02/10/2011 Postoperative infection 10/21/2010 Acute respiratory failure with hypoxia Pneumonia of both lungs due to infectious organi sm Quadriplegia, C1-C4, complete Pneumonia of right lung due to influenza A virus Resolved Problems Problem Noted Date Diagnosed Date Resolved Date Paraplegia 08/24/2017 04/02/2018 Assessment & Plan (08/24/2017 8:46 PM WEDDING COORDINATOR): Will Get PT/OT to evaluate And treat Social Work Consult To asisst With D/c planning Immunizations Immunization Administration Dates Next Due Influenza, Quadrivalent, Spl it, Intramuscular 09/15/2017 Influenza, Quadrivalent, Spl it, Preservative Free, Intramuscular 05/04/2020,07/23/2018,06/28/2016 Tdap 03/10/2022 Social History Tobacco Use Types Packs/Day Years Used Date Smoking Tobacco: Former Cigarettes 1 23 1 - 2017 Smokeless Tobacco: Never Tobacco Cessation:Counseling Given: Not Answered Alcohol Use Standard Drinks/Week Comments Yes 1 (1 standard drink = 0.6 oz pur e alcohol) social Comments No Sex and Gender Information Value Date Recorded Sex Assigned at Not on file Legal Sex Female 11:49 PM WEDDING COORDINATOR Gender Identity Female 06/01/2020 7:21 PM CDT Sexual Orientation Straight 06/01/2020 7: 21 PM CDT Last Filed Vital Signs Vital Sign Reading Time Taken Comments Blood Pressure 76/56 07/04/2023 1:22 PM WEDDING COORDINATOR Pulse 69 07/04/2023 1:22 PM WEDDING COORDINATOR Temperature 36.9 C (98.4 F) 07/04/2023 1:22 PM WEDDING COORDINATOR Respiratory Rate 20 07/04/2023 1:22 PM WEDDING COORDINATOR Oxygen Saturation 100% 07/04/2023 1:22 PM WEDDING COORDINATOR Inhaled Oxygen Concentration - - Weight 61.2 kg (135 lb) 07/04/2023 1:22 PM WEDDING COORDINATOR Height 167.6 cm (5' 6 ) 12/14/2020 2:34 PM CDT Body Mass Index 21.79 12/14/2020 2:34 PM CDT Plan of Treatment Not on file Medical Devices Implanted Type Area Septic Tank Service Technician Device Identifier Shelf Expiration Date Model / Serial / Lot PAAY [id number] Universa 6fr 22cm Radiopaque Tip Positioner Vice [employer] Braid - [id number] Implanted:Qty: 1 on 04/15/2018 by Amado Whatley MD at [facility] Right: Ureter PAAY [id number] / / Procedures Procedure Name Priority Date/Time Associated Diagnosis Comments SCREENING MAMMOGRAM BILATERAL W PA Schedule Routine, Read Routine (OP Routine) 11/05/2024 12:33 PM CDT Encounter for screening mammogram for malignant neoplasm of breast from Last 3 Months Results * (ABNORMAL) Screening Mammogram Bilateral W Pa (11/05/2024 12:33 PM CDT) Anatomical Region Laterality Modality Breast Bilateral Mammography 11/05/2024 4:39 PM CDT Impressions 11/05/2024 4:39 PM CDT 1. Asymmetry in the outer RIGHT craniocaudal view. 2. Asymmetry in the upper LEFT breast in mediolateral oblique view. FINAL ASSESSMENT: BI-RADS Category 0: Incomplete - Need Additional Imaging Evaluation. RECOMMENDATION: Findings in both breasts require additional evaluation. Diagnostic mammogram and possible ultrasound images of both breasts are recommended at this time. Electronically signed by: Alessandra Thakkar M.D. Narrative 11/05/2024 4:39 PM CDT EXAMINATION: BILATERAL SCREENING MAMMOGRAM COMPARISON: 2022 TECHNIQUE: Full-field 2D and digital breast tomosynthesis (DBT) images were obtained. CAD was utilized. BREAST PARENCHYMAL COMPOSITION: The breasts are heterogenously dense, which may obscure small masses. FINDINGS: Limited evaluation, particularly within the right breast, likely secondary to positioning. There is an asymmetry in the outer RIGHT craniocaudal view. There is an asymmetry in the upper LEFT breast in mediolateral oblique view. Adela Crowder NP IMG MAMMO PROCEDURES Final Re sult from Last 3 Months Insurance MEDICARE [facility] IDPA [facility] MEDICARE [facility] Address: [address] [address] [place] [address] MEDICARE IDPA [facility] MEDICARE [facility] Address: [address] [address] [place] [address] Advance Directives For more information, please contact: [phone] Documents on File Type Date Recorded Patient District Court Reporter Expl anation ADVANCE DIRECTIVE 09/05/2017 2:38 PM POWER OF HOSE SUSPENDER CUTTER * Full Code (Latest Code Status on File) Date Activated Date Inactivated Comments 04/16/2018 4:21 AM 04/18/2018 6:04 PM * Full Code Date Activated Date Inactivated Comments 08/24/2017 2:49 PM 09/05/2017 2:48 PM Care Teams Transit Mixer Operator Relationship Specialty Start Date End Date Zeferino Arteaga MD PCP - General 10/25/17
--- OUTSIDE RECORDS SUMMARY | 2024-11-26 13:46 | XMS_ITS | Encounter Summary ---
Author Organization [facility] Healthcare Address [address] [place] [address] Care Team Providers Care Optical Goods Drilling Machine Operator Name Role Phone Anthony King MD Primary Care Provider [phone] Zeferino Arteaga MD Primary Care Provider [phone] Encounter Details Date Type Department Care Team (Late st Contact Info) Description 09/05/2017 Documentation [facility] IM [address] [place] [address] Michelle Barboza, RN Social History Tobacco Use Types Packs/Day Years Used Date Smoking Tobacco: Some Days Smokeless Tobacco: Never Alcohol Use Standard Drinks/Week Comments No 0 (1 standard drink = 0.6 oz pur e alcohol) Comments Unknown Sex and Gender Information Value Date Recorded Sex Assigned at Not on file Legal Sex Female 11:49 PM DEPUTY COUNTY COUNSEL Gender Identity Female 06/01/2020 7:21 PM CDT Sexual Orientation Straight 06/01/2020 7: 21 PM CDT documented as of this encounter Plan of Treatment Not on file documented as of this encounter Visit Diagnoses Not on filedocumented in this encounter Additional Health Concerns Infection Onset Date Last Indicated Resolved Time MRSA Comment:04/24/15 Nasal Swab MRSA+ 03/15/15 Ulcer MRSA+ 03/17/2015 03/17/2015 04/07/2021 5:00 AM C DT documented as of this encounter Care Teams Optical Goods Drilling Machine Operator Relationship Specialty Start Date End Date Anthony King MD [address] [place] [address] PCP - General 11/22/16 10/24/17 Zeferino Arteaga MD [address] [place] [id number] PCP - General 10/25/17 documented as of this encounter
--- OUTSIDE RECORDS SUMMARY | 2024-11-26 13:46 | XMS_ITS | Clinical Summary ---
Author Organization [facility] Address [address] [facility] [place] [address] Phone Care Team Providers Care Electrolytic De Scaler Name Role Phone Anthony King MD Primary Care Provider [phone] Allergies Active Allergy Reactions Criticality Noted Date Comments Cefepime Nausea and Vomiting Low 06/27/2016 Latex Anaphylaxis High 02/17/2016 Vancomycin Nausea and Vomiting Low 02/17/2016 Medications baclofen (LIORESAL) 20 mg tablet Take 20 mg by mouth 4 times daily 20 mg three times per day and 30 mg at bedtime . Active oxybutynin chloride (DITROPAN) 5 mg tablet Take 5 mg by mouth 4 times daily. Active diazepam (VALIUM) 5 mg tablet Take 5 mg by mouth daily at bedtime. Active calcium carbonate (CALCI-CHEW) 500 mg calcium (1,250 mg) Tablet, Chewable Take 1 Tablet by mouth daily. Active zinc gluconate 50 mg Tablet Take 50 mg by mouth. Active multivitamin (DAILY-JOHNATHON) tablet Take 1 Tablet by mouth daily. Active sennosides (SENOKOT) 8.6 mg tablet Take 8.6 mg by mouth 1 time daily as needed for Constipation. Active bisacodyl (DULCOLAX) 10 mg Suppository Insert 10 mg by rectum 1 time daily as needed for Constipation. Active albuterol HFA 90 mcg inhaler Take 2 Puffs by inhalation every 6 hours as needed for Shortness of Breath. 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 Immunizations Immunization Administration Dates Next Due INFLUENZA VACCINE QUADRIVALENT 3 YR UP PF IM 03/2016 Family History Medical History Relation Name Comments Healthy Brother Unknown Father Cancer Maternal Grandfather Stroke Maternal Grandfather Unknown Maternal Grandmother Unknown Mother Cancer Paternal Grandfather Unknown Paternal Grandfather Thyroid Disease Sister 1 Relation Name Status Comments Brother Alive Father Alive Maternal Grandfather Maternal Grandmother Mother Alive Paternal Grandfather Paternal Grandmother Sister 1 Alive Sister 2 Alive Social History Tobacco Use Types Packs/Day Years Used Date Smoking Tobacco: Former Cigarettes 1 20 1 08/26/1995 - 06/26/2016 Smokeless Tobacco: Never Alcohol Use Standard Drinks/Week Comments Yes 0 (1 standard drink = 0.6 oz pur e alcohol) 3/year Comments Unknown Sex and Gender Information Value Date Recorded Sex Assigned at Not on file Legal Sex Female 2:38 PM CDT Gender Identity Not on file Sexual Orientation Not on file Last Filed Vital Signs Vital Sign Reading Time Taken Comments Blood Pressure 96/50 08/03/2016 12:09 PM SATURATOR TENDER Pulse 82 08/03/2016 12:09 PM SATURATOR TENDER Temperature 37 C (98.6 F) 08/03/2016 12:09 PM SATURATOR TENDER Respiratory Rate 18 08/03/2016 12:09 PM SATURATOR TENDER Oxygen Saturation 97% 07/01/2016 4:53 AM SATURATOR TENDER Inhaled Oxygen Concentration - - Weight 53.3 kg (117 lb 6.4 oz) 06/27/2016 6:55 A M SATURATOR TENDER Height 167.6 cm (5' 6 ) 06/22/2016 9:19 AM CDT Body Mass Index 18.95 06/22/2016 9:19 AM CDT Plan of Treatment Health Maintenance Due Date Last Done Comments DTAP/TDAP/TD VACCINES (1 - Tdap) 1996 HEPATITIS B VACCINES (1 of 3 - 19+ 3-dose series) 04/22 HPV/Cotest (21-29) 1998 PAP SMEAR 1998 CERVICAL CANCER SCREENING 2007 HPV/Cotest (30-65) 2007 PAP SMEAR 2007 BREAST CANCER SCREENING 2017 COLORECTAL SCREENING 2022 Colorectal Cancer Screening 2022 FIT-DNA Q 3 years 2022 FIT/FOBT Q 1 year 2022 Flex Sig/CT Colonography Q 5 years 2022 INFLUENZA VACCINE (#1) 2024 06/28/2016 Insurance PUBLIC AID MEDICARE PART A AND B Advance Directives For more information, please contact: [phone] * Full Code (Latest Code Status on File) Date Activated Date Inactivated Comments 06/27/2016 11:47 AM 07/01/2016 2:07 PM * Full Code Date Activated Date Inactivated Comments 06/27/2016 7:21 AM 06/27/2016 11:47 AM * Full Code Date Activated Date Inactivated Comments 06/27/2016 6:55 AM 06/27/2016 7:21 AM * Full Code Date Activated Date Inactivated Comments 06/27/2016 6:47 AM 06/27/2016 6:55 AM * Full Code Date Activated Date Inactivated Comments 03/07/2016 12:41 PM 03/07/2016 3:54 PM Care Teams Electrolytic De Scaler Relationship Specialty Start Date End Date Anthony King MD PCP - General Internal Medicine 01/14/16 Renaldo Darby MD [address] [place] [address] [place] [address] Infectious Diseases 03/07/16 Radha Parra MD [address] [place] [address] for Wound Healing [place] [address] Wound Care 03/07/16
--- OUTSIDE RECORDS SUMMARY | 2024-11-26 13:46 | XMS_ITS | Clinical Summary ---
Author Organization [facility] Address [address] [place] [address] Care Team Providers Care Career Development Specialist Name Role Phone Zeferino Arteaga MD Primary Care Provider [phone] Allergies Active Allergy Reactions Criticality Noted Date [...] (04/15/2018): Added automatically from request for surgery [id number] Bladder stones 03/20/2018 Overview (03/20/2018): Added automatically from request for surgery [id number] Pneumonia due to infectious organism 08/24/2017 Assessment & Plan (08/24/2017 8:48 PM DUAL RATE DEALER): Patient allergoic To vanc Cephalosporins, Will Continue on Aztreonam And levaquin Flu Was Negative Bcx Pending Will Get Sputum Cx And Urinary antigens Mucinex Duonebs Chest PT Albuterol As needed Neurogenic bladder 08/24/2017 Assessment & Plan (08/24/2017 8:41 PM DUAL RATE DEALER): Patient Self cathing At Home Currently Has Melendez Catheter in place - Will Continue With that Smoker 08/24/2017 Assessment & Plan (08/24/2017 8:41 PM DUAL RATE DEALER): Discussed And ancouraged To Stop Smoking Will [...] 04/02/2018 Assessment & Plan (08/24/2017 8:46 PM DUAL RATE DEALER): Will Get PT/OT to evaluate And treat Social Work Consult To asisst With D/c planning Encounters Date Type Department Care Team Description 11/05/2024 11:52 AM CDT - 11/05/2024 11:59 PM CDT Hospital Encounter [facility] Imaging and Radiology [address] [place] [address] Encounter for screening mammogram for malignant neoplasm of breast Discharge Disposition: Discharge to home or self care from Last 3 Months Immunizations Immunization Administration Dates Next Due Influenza, Quadrivalent, Spl it, Intramuscular 09/15/2017 Influenza, Quadrivalent, Spl it, Preservative Free, Intramuscular 05/04/2020,07/23/2018,06/28/2016 Tdap 03/10/2022 Surgical History Surgery Date Site/Laterality Comments GASTROSTOMY W/ FEEDING TUBE BLADDER STONE REMOVAL 08/21/2016 - 08/20/20171999 Medical History Medical History Date Comments C5 spinal cord injury (HCC) History of recurrent pneumonia H istory of pneumonia - (Added by TW Conv) Urinary tract infection UTI (uri nary tract infection) with pyuria - (Added by TW Conv) Personal history of diseases of skin or subcutaneous tissue History of decubitus ulcer - (Added by TW Conv) H/O tracheostomy Hard to intubate 04/18/2016 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, c-spine curvature Hard to intubate 04/30/2015 Family History Medical History Relation Name Comments Transient ischemic attack Father Throat cancer Maternal Grandfather Relation Name Status Comments Father Maternal Grandfather Social History Tobacco Use Types Packs/Day Years Used Date Smoking Tobacco: Former Cigarettes 1 23 1 995 - 2018 Smokeless Tobacco: Never Tobacco Cessation:Counseling Given: Not Answered Alcohol Use Standard Drinks/Week Comments Yes 1 (1 standard drink = 0.6 oz pur e alcohol) social Comments No Sex and Gender Information Value Date Recorded Sex Assigned at Not on file Legal Sex Female 11:49 PM DUAL RATE DEALER Gender Identity Female 06/01/2020 7:21 PM CDT Sexual Orientation Straight 06/01/2020 7: 21 PM CDT Obstetrics History Para Term AB IAB SAB Ectopic Multiple Livin g Live Births 2 2 2 Date Outcome GA Total Labor Labor/2nd/3rd Weight Sex Type Anes PTL Moriah A1 A5 Name Clin Term Term Last Filed Vital Signs Vital Sign Reading Time Taken Comments Blood Pressure 76/56 07/04/2023 1:22 PM DUAL RATE DEALER Pulse 69 07/04/2023 1:22 PM DUAL RATE DEALER Temperature 36.9 C (98.4 F) 07/04/2023 1:22 PM DUAL RATE DEALER Respiratory Rate 20 07/04/2023 1:22 PM DUAL RATE DEALER Oxygen Saturation 100% 07/04/2023 1:22 PM DUAL RATE DEALER Inhaled Oxygen Concentration - - Weight 61.2 kg (135 lb) 07/04/2023 1:22 PM DUAL RATE DEALER Height 167.6 cm (5' 6 ) 12/14/2020 2:34 PM CDT Body Mass Index 21.79 12/14/2020 2:34 PM CDT Plan of Treatment Health Maintenance Due Date Last Done Comments Cervical Cancer Screening 1977 Colon Cancer Screening-Colonoscopy 1977 Depression Screening 1977 Hepatitis C Screening 1977 Hepatitis B Screening 1995 Regular Well Visit/Exam 18-64 1995 Covid-19 Vaccine ( season) 2024 03/09/2021, 02/09/2021 Breast Cancer Screening-Mammogram 11/05/2025 11/05/2024, 07/25/2023 DTaP/Tdap/Td Vaccine (2 - Td or Tdap) 03/10/2032 03/10/2022 Influenza Vaccine Completed 06/17/2024, , 07/23/2018, Additional history exists Pneumococcal vaccine <65 Aged Out No longer eligible based on patient's age to complete this topic Medical Devices Implanted Type Area Electric Meter Setter Device Identifier Shelf Expiration Date Model / Serial / Lot [employer] [id number] Universa 6fr 22cm Radiopaque Tip Positioner Carpenter Assistant Installer Braid - [id number] Implanted:Qty: 1 on 04/15/2018 by Amado Whatley MD at [facility] Right: [employer] [id number] / / Procedures Procedure Name Priority Date/Time [...] sult from Last 3 Months Insurance MEDICARE [facility] MEDICARE ADVANTAGE MEDICARE [facility] MEDICARE ADVANTAGE Advance Directives For more information, please contact: [phone] Documents on File Type Date Recorded Patient Correctional Nurse Expl anation ADVANCE DIRECTIVE 09/05/2017 2:38 PM POWER OF WATCH PARTS GRINDER * Full Code (Latest Code Status on File) Date Activated Date Inactivated Comments 04/16/2018 4:21 AM 04/18/2018 6:04 PM * Full Code Date Activated Date Inactivated Comments 08/24/2017 2:49 PM 09/05/2017 2:48 PM Care Teams Career Development Specialist Relationship Specialty Start Date End Date Zeferino Arteaga MD PCP - General 10/25/17
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
--- OUTSIDE RECORDS SUMMARY | 2024-11-26 13:46 | XMS_ITS | Encounter Summary ---
Author Organization [facility] Address [address] [place] [address] Phone Care Team Providers Care Clay Maker Name Role Phone Zeferino Arteaga MD Primary Care Provider [phone] Reason for Visit * Reason Onset Date Comments Prescreen 06/29/2020 Encounter Details Date Type Department Care Team (Late st Contact Info) Description 06/29/2020 Telephone [facility] Physical Therapy [address] [place] [phone] Felipa Mendieta Prescreen Social History Tobacco Use Types Packs/Day Years Used Date Smoking Tobacco: Former Cigarettes 1 2017 Smokeless Tobacco: Never Alcohol Use Standard Drinks/Week Comments Yes 1 (1 standard drink = 0.6 oz pur e alcohol) social Comments No Sex and Gender Information Value Date Recorded Sex Assigned at Not on file Legal Sex Female 11:49 PM REPAIRER HAIRSPRING Gender Identity Female 06/01/2020 7:21 PM CDT [...] documented as of this encounter Care Teams Clay Maker Relationship Specialty Start Date End Date Zeferino Arteaga MD PCP - General 10/25/17 documented as of this encounter
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
--- OUTSIDE RECORDS SUMMARY | 2024-11-26 13:48 | XMS_ITS ---
Care Plan - [facility] Created on: November 26, 2024 SEVEN SINGER : 1975 Sex: Female Author Organization [facility] Address [address] [place] [address] Phone Care Team Providers Care Food Processing Chemist Name Role Phone Unavailable Unavailable Unavailable
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
== END 2024-11-26 13:22 | disposition home or self-care (01) ==
PROVIDERS: Emergency Provider Nurse Practitioner; PCP Family Medicine
DX: N39.0 Urinary tract infection, site not specified (principal); S14.105S Unspecified injury at C5 level of cervical spinal cord, sequela; X58.XXXS Exposure to other specified factors, sequela; Z87.891 Personal history of nicotine dependence
CPT/HCPCS: 81003; 87086; 99213; G0463